=== PATIENT | male | born 1960 | race Caucasian/White ===

== ENCOUNTER 2018-02-25 19:52 | Emergency (ER) | payer MEDICAID ==
[2018-02-25 19:52] VITALS: BMI 21.9
[2018-02-25 20:14] VITALS: BP 147/87; PULSE 90; RESP 20; TEMP 98.3; O2SAT 98
--- NOTE | 2018-02-25 21:35 | C.PDOC ---
History Of Present Illness 58 year old male presents to the ED for evaluation of injury to left big toe sustained yesterday. Patient states a beam fell onto his left big toe. Patient states a nail lifted and appears to be falling off. Patient is requesting nail to be removed. He denies any other injuries, extremity numbness/weakness. Time Seen by Provider: 02/25/18 20:22 Chief Complaint (Nursing): Lower Extremity Problem/Injury History Per: Patient History/Exam Limitations: no limitations Onset/Duration Of Symptoms: Hrs Current Symptoms Are (Timing): Still Present - Ankle/Foot Description Of Injury: Other (beam fell onto left big toe ) Past Medical History Reviewed: Historical Data, Nursing Documentation, Vital Signs Vital Signs: Last Vital Signs Temp 98.3 F 02/25/18 20:10 Pulse 90 02/25/18 20:10 Resp 20 02/25/18 20:10 BP 147/87 02/25/18 20:10 Pulse Ox 98 02/25/18 22:48 - Medical History PMH: No Chronic Diseases Surgical History: Tonsillectomy Family History: States: Unknown Family Hx - Social History Hx Alcohol Use: No Hx Substance Use: No - Immunization History Hx Tetanus Toxoid Vaccination: No Hx Influenza Vaccination: No Hx Pneumococcal Vaccination: No Review Of Systems Musculoskeletal: Positive for: Other (left big toe pain ) Neurological: Negative for: Weakness, Numbness Physical Exam - Physical Exam Appears: Non-toxic, No Acute Distress Skin: Warm, Dry Extremity: Normal ROM, Capillary Refill (less than 2 seconds ), Other (swelling , ecchymosis and tenderness to distal aspect of left great toe. nail appears partially avulsed. no active bleeding ) Pulses: Left Dorsalis Pedis: Normal, Right Dorsalis Pedis: Normal Neurological/Psych: Oriented x3, Normal Speech, Normal Cognition ED Course And Treatment O2 Sat by Pulse Oximetry: 98 (on RA ) Medical Decision Making Medical Decision Making: Impression: left big toe injury Plan: * left great toe XRay Progress: Left great toe XRay ordered and reviewed shows fracture at distal phalanx. 2[address] Podiatry resident at bedside. See consult note. Nail partially removed, dressing applied. Ortho cast shoe applied. Plan is to discharge home with Rx Keflex and follow up Saturday afternoon in clinic. Disposition Counseled Patient/Family Regarding: Studies Performed, Diagnosis, Need For Followup, Rx Given - Disposition Referrals: [facility] [Outside] Disposition: HOME/ ROUTINE Disposition Time: 22:46 Condition: STABLE Additional Instructions: Follow up with podiatry clinic on Saturday afternoon Take pain medicine as needed Prescriptions: Cephalexin [cephalexin] 500 mg PO Q12 #14 cap Ibuprofen [Motrin] 600 mg PO Q8 #30 tab Instructions: Toe Fracture (DC) Forms: [employer] ([place]ian) - POA Present On Arrival: None - Clinical Impression Clinical Impression: Toe fracture, left, Nail avulsion of toe - PA / FISHER / Resident Statement MD/DO has reviewed & agrees with the documentation as recorded. - Scribe Statement The provider has reviewed the documentation as recorded by the Scribe (Myah Goldstein) All medical record entries made by the Scribe were at my direction and personally dictated by me. I have reviewed the chart and agree that the record accurately reflects my personal performance of the history, physical exam, medical decision making, and the department course for this patient. I have also personally directed, reviewed, and agree with the discharge instructions and disposition.
[2018-02-25] MEDS ORDERED: Lidocaine 1% Inj (20ml) INFIL STA (22:17)
[2018-02-25] MEDS ORDERED: Oxycodone/Acetaminophen 5/325 mg Tab PO STA (22:46)
--- NOTE | 2018-02-26 08:15 | CP.PCM.PN ---
Subjective - Date & Time of Evaluation Date of Evaluation: 02/26/18 Time of Evaluation: 08:05 - Subjective Subjective: 58 year old male with no significant past medical history presents to emergency room with pain in the left big toe. Patient states he was going up the stairs on 02/24 and had stubbed his left big toe against the stairs. Patient states he had felt pain immediately and is toe nail nail was lifted off the nail bed. Patient states he would like to get the nail taken off today due to the pain. Patient states the toe has slowly gotten swollen and red. Rates his pain 2/10, denies taking pain medication. patient denies f/n/v/sob/chills. Past medical history: Denies Surgical history: denies Allergies: NKFDA Social: smokes 5 cigs a day x 40 years. Denies alcohol or recreational drug usage. Objective - Vital Signs/Intake and Output Vital Signs (last 24 hours): Temp Pulse Resp BP Pulse Ox 98.3 F 90 20 147/87 98 02/25/18 20:10 02/25/18 20:10 02/25/18 20:10 02/25/18 20:10 02/26/18 01:25 - Constitutional Appears: Well, Non-toxic, No Acute Distress - Head Exam Head Exam: ATRAUMATIC, NORMOCEPHALIC - Extremities Exam Additional comments: Left lower extremity exam: Vascular: DP/PT 2/4, CFT <3 secs x10, Tg warm to warm from proximal leg to tip of toes, edema and erythema noted at the left hallux circumferentially Neuro: Protective sensation grossly intact 4/4 Ortho: minimal pain with range of motion of the left 1st MPJ, minimal pain with ROM of the hallux, minimal pain on palpation to the left big toe, no pain on palpation to the proximal aspect of the foot Derm: no open lesions, left hallucal nail lifted off the nail bed, no active bleeding, no drainage noted, no malodor, no clinical signs of infection. - Neurological Exam Neurological Exam: Alert, Awake, Oriented x3 - Psychiatric Exam Psychiatric exam: Normal Affect, Normal Mood - Skin Skin Exam: Normal Color Assessment and Plan - Assessment and Plan (Free Text) Assessment: 58 yo male with no significant PMHx seen in the ED for left oblique distal hallucal phalanx fracture with detachment of the hallucal nail from the nail bed Plan: Patient seen and evaluated History and plan discussed in detail with the attending, Dr. Cherry Left foot x-rays: oblique radiolucent line noted at the base of hallucal distal phalanx with minimal displacement , no other bony deformities Patient educated on conservative treatment and bone healing period Left hallucal nail avulsed using sterile podiatry set Patient tolerated without any complications Wound cleansed with saline and betadine. Dressed with bacitracin, DSD and ASHER Patient advised to keep the dressing on for 48 hours; and do daily dressing changes thereafter using neosporin or bacitracin Patient to do epsom salt soaks daily Surgical shoe dispensed; patient to remain in surgical shoe at all times Patient educated on signs and symptoms of infection and advised to come to ED if patient experiences f/n/v/sob/extreme pain/pus from site Patient showed verbal understanding Keflex rx 500 mg PO 12 hours for 7 days Patient to follow up in podiatry clinic on Saturday
--- NOTE | 2018-02-26 10:53 | RAD ---
PROCEDURE: Radiographs of the left great toe. TECHNIQUE:: AP radiograph of the left foot, with oblique and lateral view of the left great toe. COMPARISON: None. FINDINGS: BONES: No acute displaced fracture. JOINTS: No dislocation. SOFT TISSUES: Soft tissue swelling. Evidence of laceration distal 1st phalanx. No evidence of radiopaque foreign body. OTHER FINDINGS: None. IMPRESSION: No acute displaced fracture identified. Soft tissue swelling. Evidence of laceration, distal 1st phalanx.
== END 2018-02-25 23:12 | disposition home or self-care (01) ==
LOC: C.ER 19:52
DX: S92.422A Displaced fracture of distal phalanx of left great toe, initial encounter for closed fracture (principal); S91.202A Unspecified open wound of left great toe with damage to nail, initial encounter; W22.8XXA Striking against or struck by other objects, initial encounter; Y92.9 Unspecified place or not applicable